=== PATIENT | male | born 1990 | race Caucasian/White ===

== ENCOUNTER → 2022-12-22 09:12 | Outpatient (CLI) | payer OTHER, SELFPAY ==
[2022-12-22 13:08] LABS: Basophils % 0.5 % (0.1-2.0); Eosinophils # 0.2 K/mm3 (0.0-0.4); Eosinophils % 2.6 % (0.1-12.0); Hemoglobin 14.7 g/dL (14.1-18.0); Lymphocytes # 2.9 K/mm3 (0.7-4.5); Lymphocytes % 34.2 % (10-50); Mean Corpuscular HGB Conc 32.6 g/dL (31.8-35.4); Mean Corpuscular Hemoglobin 26.7 pg (27.0-31.2); Mean Platelet Volume 8.9 fl (7.4-10.4); Monocytes # 0.5 K/mm3 (0.1-1.0); Monocytes % 5.8 % (1.7-9.3); Neutrophils # 4.8 K/mm3 (1.8-7.8); Platelet Count 315 K/mm3 (142-424); Red Blood Count 5.48 M/mm3 (4.60-6.20); White Blood Count 8.5 K/mm3 (4.8-10.8)
[2022-12-22 13:27] LABS: Alanine Aminotransferase 35 U/L (12-78); Albumin Level 3.8 g/dl (3.5-5.0); Albumin/Globulin Ratio 1.4 (1.1-1.8); Alkaline Phosphatase 153 U/L (38-126); Anion Gap 15.5 mEq/L (5-15); Aspartate Amino Transferase 33 U/L (17-59); Bilirubin,Total 0.6 mg/dl (0.2-1.3); Blood Urea Nitrogen 17 mg/dl (9-20); Calcium 8.5 mg/dl (8.4-10.2); Carbon Dioxide 27 mmol/L (22.0-30.0); Chloride 103 mmol/L (98-107); Chol/HDL Ratio 4.1 (1-3.5); Cholesterol 168 mg/dl (140-200); Estimated Glomerular Filt Rate 111 ml/min (>60); GFR (African American) 134 ML/MIN (>60); Globulin 2.7 g/dL (1.3-3.2); Glucose 84 mg/dl (74-100); HDL Cholesterol 41 mg/dl (40-60); Potassium 4.5 mmoL/L (3.5-5.1); Sodium 141 mmol/L (136-145); Total Protein,Serum 6.5 g/dl (6.3-8.2); Triglycerides 146 mg/dl (30-150); VLDL Cholesterol 29 mg/dL (0-40)
[2022-12-22 13:38] LABS: Direct LDL Cholesterol 106.59 mg/dL (100-129)
[2022-12-22 13:56] LABS: Thyroid Stimulating Hormone 1.91 uIU/mL (0.465-4.68)
[2022-12-22 16:02] LABS: Hemoglobin A1C 5.6 % (4.0-6.0)
== END ==
PROVIDERS: PCP Nurse Practitioner Family; Visit Provider Nurse Practitioner Family
DX: Z00.00 Encounter for general adult medical examination without abnormal findings (principal); Z79.899 Other long term (current) drug therapy
CPT/HCPCS: 80053; 80061; 83036; 84443; 85025

== ENCOUNTER → 2023-07-28 09:51 | Outpatient (CLI) | payer OTHER, SELFPAY | LOC: SL 07-31 09:53 | PROVIDERS: PCP Internal Medicine; Visit Provider Internal Medicine | DX: G47.33 Obstructive sleep apnea (adult) (pediatric) (principal); G47.36 Sleep related hypoventilation in conditions classified elsewhere | CPT/HCPCS: G0399 ==

== ENCOUNTER 2024-02-23 18:16 | Outpatient (CLI) | payer OTHER, SELFPAY ==
[2024-02-23 19:05] LABS: Cocaine Screen,Urine Negative ng/ml (<300); Methadone Screen,Urine Negative ng/ml (<300)
[2024-02-23 19:06] LABS: Opiate Screen,Urine Negative ng/ml (<300)
[2024-02-23 19:07] LABS: Phencyclidine Screen,Urine Negative ng/ml (<25)
[2024-02-23 19:09] LABS: Amphetamine/Metha Screen,Urine Negative ng/ml (<1000); Barbiturates Screen,Urine Negative ng/ml (<200); Benzodiazepines Screen,Urine Negative ng/ml (<200); Cannabinoid Screen,Urine Negative ng/ml (<50)
== END 2024-02-23 23:59 | disposition home or self-care (01) ==
LOC: LAB.DROPOF 18:18
PROVIDERS: PCP Student in an Organized Health Care Education/Training Program; Visit Provider Student in an Organized Health Care Education/Training Program
DX: Z00.00 Encounter for general adult medical examination without abnormal findings (principal)
CPT/HCPCS: 80307

== ENCOUNTER 2024-09-23 10:04 | Emergency (ER) | payer OTHER, SELFPAY ==
[2024-09-23 10:06] VITALS: BP 170/100; PULSE 88; RESP 20; TEMP 36.7; O2SAT 97; BMI 33.9
--- NOTE | 2024-09-23 10:14 | XR_ITS ---
FINAL REPORT CLINICAL HISTORY: hand smashed by 300# equipment COMPARISON: None FINDINGS: Three views of the left hand show a transverse fracture of the 5th metacarpal with mild displacement. There is air seen within the soft tissues adjacent to the fracture site compatible with open injury. No radiopaque foreign body identified. The remaining osseous structures are intact. IMPRESSION: Fracture as above. Reviewed, Interpreted and Dictated by Fransico Holden MD Transcribed by Delmy Saul Authenticated and [facility]
[2024-09-23] MEDS: IBUPROFEN 400 MG TABLET 800 MG PO (10:17)
[2024-09-23] MEDS: ACETAMINOPHEN 500MG TAB 1000 MG PO (10:18)
[2024-09-23] MEDS: TET/DIPHTH/PERT-ADULT 0.5ML SYRINGE 0.5 ML IM (11:20)
--- NOTE | 2024-09-23 12:00 | XR_ITS ---
FINAL REPORT CLINICAL HISTORY: .post splint COMPARISON: Exam performed earlier today FINDINGS: LEFT HAND Three views demonstrate a transverse fracture of the proximal fifth metacarpal with interval closed reduction and placement of a fiberglass splint. Joints are intact. There is no new abnormality. IMPRESSION: Post reduction of transverse fracture of the proximal fifth metacarpal. Reviewed, Interpreted and Dictated by Fransico Hodlen MD Transcribed by Teresa Jensen Authenticated and [facility]
--- NOTE | 2024-09-23 12:04 | PC.NURSE ---
XR AT BEDSIDE
--- NOTE | 2024-09-23 12:05 | ED_ITS ---
Discharge Plan Disposition Patient Disposition: Home, Self-Care Prescriptions Prescriptions: New hydrocodone-acetaminophen 5-325 mg tablet 1 tab PO Q6H PRN (Reason: pain) 3 Days Qty: 12 0RF No Action omeprazole 40 mg capsule,delayed release(DR/EC) 40 mg PO DAILY Qty: 90 2RF prednisone 20 mg tablet 20 mg PO BID Qty: 10 0RF Referrals Follow up/Referrals: Lance Montano APRN [Primary Care Provider] - See instructions Luke Armendariz DO [Staff Physician] - See instructions Activity Restrictions/Add. Instructions Additional Instructions/Restrictions: Stay in your splint to be nonweightbearing with this injury and please follow-up with orthopedic surgeon within 1 week. Clinical Impressions Clinical Impression: Fracture of fifth metacarpal bone, Puncture wound of hand Print Language Print Language: Bhutanese Discharge ED Provider: Franklyn Rodríguez General Adult HPI General Chief complaint: PAIN Stated complaint: AO 09/23/24 hit l hand cut on top of hand Time Seen by Provider: 09/23/24 11:42 Mode of Arrival: Family Vehicle Source of Information: Patient and Medical Record Description of Symptoms (Recalled from ER Triage Doc. by RN): Pt c/o pain, swelling, and laceration/puncture to L hand. 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 No medications [employer]. He is unsure if he is UTD on TDAP. Related Data Previous Rx's ?Medication ?Instructions ?Recorded omeprazole 40 mg capsule,delayed 40 mg PO DAILY GERD #90 caps 05/31/23 release prednisone 20 mg tablet 20 mg PO BID #10 tabs 06/14/24 hydrocodone 5 mg-acetaminophen 325 1 tab PO Q6H PRN pain 3 days #12 09/23/24 mg tablet tabs Allergies Allergy/AdvReac Type Severity Reaction Status Date / Time No Known Allergies Allergy Verified 06/14/24 10:27 [facility] Disclaimer: The information contained in this section may have been updated after the patient was seen, as this information can be updated by other users. Medical History Chronic GERD Kidney stone Surgical History History of esophagogastroduodenoscopy (EGD) Family History Other Family history of diabetes mellitus type II Family hx-kidney disease Social History (Updated 06/15/24 @ 21:03 by DEJAH Rayo) Smoking Status: Never smoker alcohol intake: current alcohol intake frequency: holidays/special occasions only substance use type: denies use current occupational status: employed Travel in the last 8 weeks: None household members: family housing: house lives independently: Yes marital status: education level: high school caffeine: Yes special mya needs: No agree to transfusion: No do you feel safe at home: Yes victim of physical abuse: No victim of emotional abuse: No victim of sexual abuse: No would you like helpful sources: No Have you lived/traveled outside [place] in past 30 days?: No Contact w/someone who lives/traveled outside US past 30 days?: No Exposure to someone with infectious disease in past 14 days?: No Do you have a fever (greater than 100.4 F or 38 C)?: No Have you tested positive for COVID-19: No Exposed to someone with COVID-19 in past 14 days?: No Do you have a sore throat?: No Do you have a cough?: No Do you have any weakness?: No Do you have any diarrhea?: No Are you experiencing any unusual bleeding?: No Do you have any muscle aches/pain?: No Do you have any abdominal pain?: No Are you experiencing loss of taste or smell?: No Other Medical History Have you received the Pneumonia Vaccine: No ROS Obtained: Yes All systems reviewed & no additional complaints except as documented Physical Exam General General appearance: alert Respiratory Respiratory exam: Present normal lung sounds bilaterally Cardiovascular Cardiovascular exam: Present regular rate Expanded Upper Extremity Exam Left: Hand exam: Present other (Patient is neurovascularly intact distal of these injuries) Hand L/R back image: 2 1. Pain and tenderness and swelling 2. Small superficial laceration and puncture wound oozing venous blood Neurological Exam Neurological exam: Present alert Medical Decision Making Medical Records Screening: Per USPSTF and CDC recommendations, given the prevalence of disease in our region, it is our hospital?s policy to screen for HIV and viral Hepatitis for all patients aged 18 and over and those with ongoing risk factors. Kale Inquiry Pt receiving controlled substance: No Vital Signs: 09/23/24 10:06 Temperature 98.1 F Temperature Source Oral Pulse Rate [Right] 88 Respiratory Rate 20 Blood Pressure [Right Arm] 170/100 H Blood Pressure Mean [Right Arm] 123 Blood Pressure Source [Right Arm] Automatic Cuff 02 Sat by Pulse Oximetry 97 Oxygen Delivery Method Room Air Orders (Tests/Meds): ED MEDICATIONS Discontinued Medications Generic Name Dose Route Start Last Admin Trade Name Freq PRN Reason Stop Dose Admin Acetaminophen 1,000 mg 09/23/24 10:14 09/23/24 10:18 Acetaminophen 500mg Tab PO 09/23/24 10:15 1,000 mg ONCE ONE Administration Ibuprofen 800 mg 09/23/24 10:14 09/23/24 10:17 Ibuprofen 400 Mg Tablet PO 09/23/24 10:15 800 mg ONCE ONE Administration Tetanus/Reduced Diphtheria/Acell Pertussis 0.5 ml 09/23/24 10:14 09/23/24 11:20 Tet/Diphth/Pert-Adult 0.5ml Syringe IM 09/23/24 10:15 0.5 ml .ONCE ONE Administration ORDERS Category Date Time Status Hand XR left minimum 3 views [XR hand LT min 3V] Stat Exams 09/23/24 12:00 Ordered XR hand LT min 3V Stat Exams 09/23/24 10:14 Completed Medical Decision Narrative: Patient with above history and physical. X-ray was performed I personally interpreted which shows a base of the fifth metacarpal with some very mild volar displacement. He was placed in a ulnar gutter splint. He did have a superficial laceration did not need closure there is an evidence of puncture wound that was actively oozing venous blood however this is several inches away from the fracture site is unlikely that this is communicating an open fracture. Additionally it was a blunt injury and there is no puncture wound that penetrated deep into the hand. Therefore not treat this as an open fracture at the moment. He will follow-up with Dr. Armendariz to soon as possible. Follow-up x- ray was adequate with regards to reduction. Procedures Orthopedic Fracture Reduction Fracture #1: Side: left Fracture Reduction Location: metacarpal Analgesia: none Technique: direct manipulation Post Reduction X-rays Demonstrate: acceptable reduction Post-reduction neuro exam: intact Post-reduction vascular exam: intact Orthopedic Splinting/Casting Injury #1: Side: left Upper Extremity Injury Location: hand Upper Extremity Immobilizer: ulnar gutter Post Cast/Splinting Neuro Status: intact Post Cast/Splinting Vasc Status: intact Critical Care Critical Care Time Critical Care Time: No
[2024-09-23 12:18] VITALS: BP 155/98; PULSE 82; RESP 18; TEMP 36.7; O2SAT 99
== END 2024-09-23 12:18 | disposition home or self-care (01) ==
PROVIDERS: Emergency Provider Student in an Organized Health Care Education/Training Program; PCP Nurse Practitioner Family
DX: M79.642 Pain in left hand (principal); S61.432A Puncture wound without foreign body of left hand, initial encounter; S62.308A Unspecified fracture of other metacarpal bone, initial encounter for closed fracture; W31.89XA Contact with other specified machinery, initial encounter; Y93.89 Activity, other specified; Y92.69 Other specified industrial and construction area as the place of occurrence of the external cause; Z23 Encounter for immunization
CPT/HCPCS: 26700; 73130; 90471; 90715; 99284

== ENCOUNTER 2024-10-01 09:04 | Outpatient (CLI) | payer OTHER, SELFPAY ==
--- NOTE | 2024-10-01 09:10 | XR_ITS ---
FINAL REPORT TECHNIQUE: Left hand 3 views CLINICAL HISTORY: Left hand fx COMPARISON: 09/23/2024 FINDINGS: LEFT HAND: 3 images of the left hand were obtained. Cast material overlies the left hand and proximal forearm, which obscures some degree of bony detail. There is a minimally displaced transverse fracture of the base of the fifth metacarpal, also seen on the prior exam. The joint spaces are intact. The subcutaneous emphysema in the dorsal soft tissues of the hand seen on the prior exam is no longer noted. IMPRESSION: Minimally displaced transverse fracture of the base of the fifth metacarpal, also seen on the prior exam of 09/23/2024. Reviewed, Interpreted and Dictated by Juvenal Collado MD Transcribed by Radha Horton Authenticated and [facility]
== END 2024-10-01 23:59 | disposition home or self-care (01) ==
LOC: RAD 09:08
PROVIDERS: PCP Nurse Practitioner Family; Visit Provider Physician Assistant Surgical
DX: M79.642 Pain in left hand (principal); S62.308A Unspecified fracture of other metacarpal bone, initial encounter for closed fracture
CPT/HCPCS: 73130

== ENCOUNTER 2024-10-08 08:47 | Outpatient (CLI) | payer OTHER, SELFPAY ==
--- NOTE | 2024-10-08 08:53 | XR_ITS ---
FINAL REPORT CLINICAL HISTORY: Left Hand fx on 09/23/2024 5th metacarpal no surgery COMPARISON: 10/01/2024 FINDINGS: LEFT HAND Three views once again demonstrate the mildly displaced transverse fracture of the proximal fifth metacarpal, stable in appearance since the prior exam of 10/01/2024. No periosteal reaction is noted at this time. The splint is again noted. No new bony abnormalities are identified. IMPRESSION: Stable mildly displaced transverse fracture of the proximal fifth metacarpal. Reviewed, Interpreted and Dictated by Fransico Holden MD Transcribed by Radha Horton Authenticated and [facility]
== END 2024-10-08 23:59 | disposition home or self-care (01) ==
PROVIDERS: PCP Nurse Practitioner Family; Visit Provider Physician Assistant
DX: M79.642 Pain in left hand (principal); S62.308A Unspecified fracture of other metacarpal bone, initial encounter for closed fracture
CPT/HCPCS: 73130

== ENCOUNTER 2024-10-29 08:59 | Outpatient (CLI) | payer OTHER, SELFPAY ==
--- NOTE | 2024-10-29 09:01 | XR_ITS ---
FINAL REPORT CLINICAL HISTORY: lt hand pain, follow up fx COMPARISON: 10/08/2024 FINDINGS: LEFT HAND: Three views of the left hand demonstrate a transverse fracture of the proximal fifth metacarpal, with stable displacement when compared to the prior exam of 10/08/2024. No bony union is identified. Generalized osteopenia is noted. The joint spaces appear normal. IMPRESSION: No radiologic changes of bony healing in the fifth metacarpal fracture when compared to the prior exam of 10/08/2024. Continued follow-up radiographs are suggested. Reviewed, Interpreted and Dictated by Fransico Holden MD Transcribed by Radha Horton Authenticated and . [facility]
== END 2024-10-29 23:59 | disposition home or self-care (01) ==
LOC: RAD 08:59
PROVIDERS: PCP Nurse Practitioner Family; Visit Provider Physician Assistant Surgical
DX: M79.642 Pain in left hand (principal); S61.432A Puncture wound without foreign body of left hand, initial encounter; S62.308A Unspecified fracture of other metacarpal bone, initial encounter for closed fracture
CPT/HCPCS: 73130

== ENCOUNTER 2024-10-29 10:19 | Outpatient (RCR) | payer OTHER, SELFPAY | END 2024-10-29 23:59 | disposition home or self-care (01) | LOC: OT 10:19 | PROVIDERS: Visit Provider Physician Assistant Surgical | DX: S62.308A Unspecified fracture of other metacarpal bone, initial encounter for closed fracture (principal); S61.439A Puncture wound without foreign body of unspecified hand, initial encounter; X58.XXXA Exposure to other specified factors, initial encounter ==

== ENCOUNTER 2024-11-19 08:28 | Outpatient (CLI) | payer OTHER, SELFPAY ==
--- NOTE | 2024-11-19 08:37 | XR_ITS ---
FINAL REPORT CLINICAL HISTORY: lt hand pain FINDINGS: LEFT HAND Three views were obtained. There is a transverse mildly displaced fracture through the base of the fifth metacarpal with some bridging callus. Moderate overlying soft tissue edema is identified. IMPRESSION: Healing fracture as above. Reviewed, Interpreted and Dictated by Juvenal Collado MD Transcribed by Monica Lyons Authenticated and [facility]
== END 2024-11-19 23:59 | disposition home or self-care (01) ==
LOC: RAD 08:29
PROVIDERS: PCP Nurse Practitioner Family; Visit Provider Physician Assistant Surgical
DX: M79.642 Pain in left hand (principal); S62.317A Displaced fracture of base of fifth metacarpal bone, left hand, initial encounter for closed fracture
CPT/HCPCS: 73130

== ENCOUNTER 2024-12-17 08:26 | Outpatient (CLI) | payer OTHER, SELFPAY ==
--- NOTE | 2024-12-17 08:28 | XR_ITS ---
FINAL REPORT CLINICAL HISTORY: lt fifth finger fracture COMPARISON: 11/19/2024 FINDINGS: LEFT HAND Three views demonstrate a healing transverse fracture of the proximal fifth metacarpal. There is no evidence of intra-articular extension. The visualized joint spaces are normally aligned. The soft tissues are unremarkable. IMPRESSION: Healing fifth metacarpal fracture. Reviewed, Interpreted and Dictated by Juvenal Collado MD Transcribed by Delmy Saul Authenticated and [facility]
--- OUTSIDE RECORDS SUMMARY | 2024-12-17 08:28 | XMS_ITS | Continuity of Care Document ---
Author Organization [facility] Phone Care Team Providers Care Newborn Photographer Name Role Phone SILVANA SCHAEFER Admitting SILVANA SCHAEFER Unavailable EMI LAWLER Primary Care OLIVEJONOIL Primary Attending MEDICATIONS HOME MEDICATIONS Status RXNORM NDC Medication Dose Route Frequency Dates Comments Reported By Updated By Drug Treatment Unknown DISCHARGE MEDICATIONS Status RXNORM NDC Medication Dose Route Frequency Dates Comments Physician Updated By No Discharge Medication Info rmation Available INPATIENT MEDICATIONS Status RXNORM NDC Medication Dose Route Frequency Rat e Quantity Dates Comments Physician Updated By No Inpatient Medication Info rmation Available SOCIAL HISTORY SOCIAL HISTORY SNOMED-CT Social History Element Description Effective Dates Offered Cessation Comment UpdatedBy [id number] Smoking Status Unknown If Ever Smoked SOCIAL HISTORY - Gender Sex: Male SOCIAL HISTORY - Status : status i nformation is not available Intention in Next Year: intention information is not available SOCIAL HISTORY - Sexual Behavior Sexual Orientation Gender Identity SNOMED-CT Description SNO MED -CT Description Activity Level No of Partners Partner Type UpdatedBy Information is not available HEALTH CONCERNS Problems Concern Status Health Concern problem infor mation not available. Smoking Status Status Years Used Consumed packs p er day Health Concern smoking histo ry information not available. Family History Concern Status Health Concern family histor y information not available. ENCOUNTERS ENCOUNTER INFORMATION Reason for Visit 5TH METACARPAL FX Admission November 04, 2024 5:13:[address] [id number] Discharge November 21, 2024 3:59:00 AM [facility] DISCH ARGED TO HOME OR SELF CARE ENCOUNTER DIAGNOSES Notes information is not jammie ilable. Code System Diagnosis Onset Date Diagnosis information is not available. 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 Role on Team Status Start Date End Date Update d By OLIVE SILVANA Referring normal November 13, 2024 1:09:04 PM [place] November 21, 2024 3:59:00 AM UTC [id number] on November 13, 2024 1:09:04 PM UT OLIVE PINA Attending normal November 13, 2024 1:09:04 PM [place] November 21, 2024 3:59:00 AM UTC [id number] on November 13, 2024 1:09:04 PM UT OLIVE PINA Admitting normal November 13, 2024 1:09:04 PM UT November 21, 2024 3:59:00 AM UTC [id number] on November 13, 2024 1:09:04 PM [place] NURIS FINNK PCP normal November 04, 2024 5:20:46 PM UT November 21, 2024 3:59:00 AM UTC [id number] on November 13, 2024 1:09:04 PM UTC UNDEFINED DOCTOR PHY Referring normal November 04, 2024 5:20:46 PM UTC November 13, 2024 1:09:04 PM UTC [id number] on November 13, 2024 1:09:04 PM UTC UNDEFINED DOCTOR PHY Attending normal November 04, 2024 5:20:46 PM UTC November 13, 2024 1:09:04 PM UTC [id number] on November 13, 2024 1:09:04 PM UTC UNDEFINED DOCTOR PHY Admitting normal November 04, 2024 5:20:46 PM UTC November 13, 2024 1:09:04 PM UTC [id number] on November 13, 2024 1:09:04 PM UTC
== END 2024-12-17 23:59 | disposition home or self-care (01) ==
LOC: RAD 08:27
PROVIDERS: PCP Nurse Practitioner Family; Visit Provider Physician Assistant Surgical
DX: S62.307D Unspecified fracture of fifth metacarpal bone, left hand, subsequent encounter for fracture with routine healing (principal)
CPT/HCPCS: 73130